=== PATIENT | female | born 1995 | race Caucasian/White ===

== ENCOUNTER 2016-07-24 20:22 | Emergency (ER) | payer BC ==
[~2016-07-24 20:22] MED LIST: DEPO-PROVE150 MG/11 IM; HYDROCODONE 5MG/5 MG PO
--- NOTE | 2016-07-25 19:08 | ER ---
ADMIT: 07/24/2016 RM/LOC: ER [facility] MR#: [id number] [address] [id number] SONIA NICHOLSON [address] [place] [address] Emergency Room Report SEX: F AGE: 20 : 1995 DATE: 07/24/2016 HISTORY OF PRESENT ILLNESS: The patient is a 20-year-old female with a past medical history of migraine, came to the ER with chief complaint of right facial and right temporal and right-sided headaches. Headaches started 4 days ago, gradually increased in severity. The patient also complains of photophobia and increased sensation to voice, and also nausea. The patient denies any neck stiffness or neck pain. The patient denies any fever at home. The patient also had no new numbness, weakness, problem with the balance, or visual changes or problem with the speech. Per patient, she sometimes gets the one-sided headaches, but usually the headache is double-sided. The patient states 2 weeks ago she had an MRI to rule out Arnold-Chiari because she has a family history or Arnold-Chiari, which per patient the MRI was all normal. PHYSICAL EXAMINATION: VITAL SIGNS: The patient was afebrile. GENERAL: In moderate distress. There were no facial swelling. The patient was not lethargic or somnolent. HEENT: There were no tenderness of the temporal artery areas. Pupils are 3 mm reactive to light bilaterally. On funduscopy, there was no papilledema. NECK: Supple, and the meningismus was negative. LUNGS: Clear bilaterally. HEART: Normal S1, S2. ABDOMEN: Soft. NEUROLOGICAL: Cerebellar exam, cranial nerve, motor and sensory, and gait are all normal. The patient received Thorazine and Benadryl. The patient received IV fluids. Pain was controlled effectively. The patient is stable for discharge to home and follow up with the primary care doctor. Shaquille Khoury MD/ leon JOB #: [id number] CC: Shaquille Khoury MD, Attending Physician Yeimi Freed MD, Family Physician
== END 2016-07-24 21:50 | disposition home or self-care (01) ==
LOC: ER 20:22
DX: R51 Headache (principal); G89.29 Other chronic pain